=== PATIENT | female | born 1960 | race Two or more races ===

== ENCOUNTER 2016-09-17 06:01 | Inpatient (IN) | payer BC ==
[~2016-09-17 06:01] MED LIST: ADRENAL SUPPORT PO; AIRBORNE; AIRBORNE TABLE1 EACH PO; ALLEGRA-D1 TAB.SR .; ARTHRITIS PAIN650 M7 PO; ASPIRIN81 M1 CH; AZULFIDINE500 M1 PO; B-12 SL; COQ-10100 M1 PO; COZAAR50 M1 PO; COZAAR50 MG; CPAP INH; FIORICET 50-301 EAC1 PO; HYDROXYCHLOROQ200 M2 PO; LEXAPRO20 M2 PO; MAGNESIUM PO; METFORMIN HCL500 M2 PO; MUCINEX D1 TAB.SR .; OMEGA 3 FISH1 CAP.EC; PEPTO-BISM262 MG/11; PEPTO-BISMOL262 M; PRAVACHOL40 M1 PO; PRAVASTATIN; PREVACID30 M2 PO; PROVASTATIN; VITAMIN D31 M1 PO; WAL-PROFEN200 MG; ZICAM; ZOLOFT25 MG; [UNRECOGNIZED DRUG - OTHER]; [UNRECOGNIZED DRUG - OTHER]
[2016-09-17 06:55] LABS: INR 0.9 INR (0.9-1.1); PROTHROMBIN TIME 10.9 SECONDS (9.0-13.6)
[2016-09-18 05:49] LABS: BASO % 0.1 % (0-2); EOS % 0.3 % (0-7); HCT-HEMATOCRIT 34.3 % (34.0-49.0); HGB-HEMOGLOBIN 11.4 gm/dl (12.0-15.5); IMMATURE GRANULOCYTES ABSOLUTE 0.02 tho/cmm (0-0.03); IMMATURE GRANULOCYTES PERCENT 0.2 % (0-0.3); LYMPH % 18.1 % (20-45); LYMPH ABSOLUTE COUNT 1.9 tho/cmm (0.8-4.5); MCH (MEAN CORPUSCULAR HGB) 31.6 pg (28.0-32.0); MCHC MEAN CORPUSCULAR HGB CONC 33.2 % (32.0-36.0); MEAN PLATELET VOLUME 10.1 cmc (9.4-12.4); MONO % 12.6 % (0-12); MONOCYTE ABSOLUTE COUNT 1.3 tho/cmm (0.0-1.2); NEUTROPHIL ABSOLUTE COUNT 7.2 tho/cmm (1.6-8.0); NEUTROPHIL-AUTOMATED 7.2 tho/cmm (1.6-8.0); NEUTROPHILS % 68.7 % (40-80); PLATELET COUNT 205 tho/cmm (150-450); RED BLOOD COUNT 3.61 mil/cmm (4.00-5.20); WHITE BLOOD COUNT 10.5 tho/cmm (4.0-10.0)
[2016-09-20] MEDS ORDERED: ASPIRIN81 M1 PO (13:23)
[2016-09-20] MEDS ORDERED: ROXICODONE15 M2 PO (13:25)
[2016-09-20] MEDS ORDERED: ULTRAM50 M1 PO (13:27)
[2016-09-20] MEDS ORDERED: MOBIC7.5 M2 PO (13:34)
== END 2016-09-20 14:25 | DRG 470 ==
LOC: SHSA 06:01 → ORE 08:26 → PACU 09:36 → 5EA 10:35
PROVIDERS: Internal Medicine; Physician Assistant Surgical; ADMIT Orthopaedic Surgery Foot and Ankle Surgery
PROC: 0SRC0J9 Replacement of Right Knee Joint with Synthetic Substitute, Cemented, Open Approach (ICD-10-PCS; principal; 2016-09-17)
DX: M06.861 Other specified rheumatoid arthritis, right knee (principal); D68.51 Activated protein C resistance; Z68.42 Body mass index [BMI] 45.0-49.9, adult; E66.01 Morbid (severe) obesity due to excess calories; N02.8 Recurrent and persistent hematuria with other morphologic changes; F32.9 Major depressive disorder, single episode, unspecified; I10 Essential (primary) hypertension; K21.9 Gastro-esophageal reflux disease without esophagitis; E78.5 Hyperlipidemia, unspecified; G47.33 Obstructive sleep apnea (adult) (pediatric); M17.11 Unilateral primary osteoarthritis, right knee; E55.9 Vitamin D deficiency, unspecified; R73.03 Prediabetes
CPT/HCPCS: C1713; C1776; J0171; J0690; J1100; J2270; J2795; J7050